=== PATIENT | male | born 1960 | race Caucasian/White ===

== ENCOUNTER 2019-04-11 07:01 | Emergency (ER) | payer BC ==
--- OUTSIDE RECORDS SUMMARY | 2019-04-11 07:08 | XMS REPORT | Summary of Care ---
:1960 Author Organization [facility] Address [address] [address] Care Team Providers Name Role Phone Alvin Herrera Primary Care Provider Reason for Visit Reason Comments Follow Up pt presents for follow up with medication Encounter Details Date Type Department Care Team Description 02/16/2019 Office Visit [facility] Alvin Herrera MD Gastroesophageal reflux disease with esophagitis (Primary Dx); Practice [address] [place] [address] Lipid screening; [address] [place] [address] Mild persistent asthma, unspecified [place] [address] [phone] Allergies Active Allergy Reactions Severity Noted Date Comments No Known Allergies Other 09/02/2007 documented as of this encounter (statuses as of 02/16/2019) Medications Medication Sig Dispensed Refills Start Date End Date Status albuterol HFA Take 2 Puffs by 1 Inhaler 5 03/27/2017 Active (VENTOLIN) 108 (90 inhalation FOUR Base) MCG/ACT TIMES DAILY Inhalation Aero NEEDED (cough). SolnIndications: Moderate persistent asthma, unspecified whether complicated montelukast TAKE ONE TABLET 30 Tab 5 09/09/2018 Active (SINGULAIR) 10 MG BY MOUTH ONCE Oral Tab DAILY DIRECTED SYMBICORT 160-4.5 INHALE TWO PUFFS 10.2 g 5 01/07/2019 Active MCG/ACT Inhalation BY MOUTH TWICE A Aerosol DAY pantoprazole TAKE ONE TABLET 180 Tab 0 02/05/2019 Active (PROTONIX) 40 MG BY MOUTH TWICE A Oral Tab EC DAY DIRECTED pantoprazole TAKE ONE TABLET 180 Tab 3 02/26/2017 Discontinued (PROTONIX) 40 MG BY MOUTH TWICE A 9 Oral Tab EC DAY documented as of this encounter (statuses as of 02/16/2019) Active Problems Problem Noted Date Left shoulder pain 03/12/2018 Family history of anticardiolipin syndrome 01/07/2014 GERD (gastroesophageal reflux disease) 10/16/2009 Overview: For chronic cough PULMONARY NODULES 09/10/2009 FAMILY HISTORY OF CAD 09/02/2007 Overview: DAD KIDNEY STONES 09/02/2007 Sleep Apnea 09/02/2007 Hemorrhagic disorder due to intrinsic circulating anticoagulants 09/02/2007 Overview: MOM FAMILY HISTORY OF ESOPHAGEAL CANCER 09/02/2007 Overview: PATERNAL GRANDFATHER documented as of this encounter (statuses as of 02/16/2019) Resolved Problems Problem Noted Date Resolved Date Unspecified asthma(493.90) 07/13/2009 10/16/2009 documented as of this encounter (statuses as of 02/16/2019) Immunizations Name Administration Dates Next Due Influenza (IM) Preservative Free 12/12/2015 documented as of this encounter Social History Tobacco Use Types Packs/Day Years Used Date Never Smoker Smokeless Tobacco: Never Used Alcohol Use Drinks/Week oz/Week Comments No Sex Assigned at Date Recorded Not on file Job Start Date Occupation Industry Not on file Not on file Not on file Travel History Travel Start Travel End No recent travel history available. documented as of this encounter Last Filed Vital Signs Vital Sign Reading Time Taken Comments Blood Pressure 134/80 02/16/2019 10:04 AM EST Pulse 75 02/16/2019 10:04 AM EST Temperature - - Respiratory Rate - - Oxygen Saturation 98% 02/16/2019 10:04 AM EST Inhaled Oxygen Concentration - - Weight 93.4 kg (205 lb 12.8 oz) 02/16/2019 10:04 AM EST Height 180.3 cm (5' 11") 02/16/2019 10:04 AM EST Body Mass Index 28.7 02/16/2019 10:04 AM EST documented in this encounter Progress Notes Alvin Herrera MD - 02/16/2019 10:20 AM EST PATIENT: Francisco Fowler : 1960 DATE OF SERVICE: 02/16/2019 CHIEF COMPLAINT: Chief Complaint Patient presents with Follow Up pt presents for follow up with medication Subjective HISTORY OF PRESENT ILLNESS: Francisco Fowler is a 58-y.o. male. He has asthma and GERD triggers it. He had been stable but had a flare recently and used his rescueinhaler. 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 He is tired . Bed at 9 and up at 4 Past Medical History: Diagnosis Date Asthma Diverticulosis Esophagitis 2012 despite protonix daily FAMILY HISTORY OF ANTICARDIOLIPIN SYNDROME 09/02/2007 MOM FAMILY HISTORY OF CAD 09/02/2007 DAD 60 FAMILY HISTORY OF ESOPHAGEAL CANCER 09/02/2007 PATERNAL GRANDFATHER GERD (gastroesophageal reflux disease) 10/16/2009 for chronic cough Hyperlipidemia Sleep Apnea 09/02/2007 not on machine Family History Problem Relation Age of Onset High Cholesterol Father Arthritis Father Heart Paternal Grandfather Cancer Paternal Grandfather ESOPHAGEAL Diabetes Paternal Grandfather Stroke Mother Seizures Mother Diabetes Paternal Grandmother Cancer Maternal Grandmother Current Outpatient Medications Medication Sig albuterol HFA (VENTOLIN) 108 (90 Base) MCG/ACT Inhalation Aero Soln Take 2 Puffs by inhalation FOUR TIMES DAILY NEEDED (cough). montelukast (SINGULAIR) 10 MG Oral Tab TAKE ONE TABLET BY MOUTH ONCE DAILY DIRECTED pantoprazole (PROTONIX) 40 MG Oral Tab EC TAKE ONE TABLET BY MOUTH TWICE A DAY DIRECTED SYMBICORT 160-4.5 MCG/ACT Inhalation Aerosol INHALE TWO PUFFS BY MOUTH TWICE A DAY No current facility-administered medications for this visit. Allergies Allergen Reactions No Known Allergies Other Social History Socioeconomic History Marital status: Spouse name: Not on file Number of children: Not on file Years of education: Not on file Highest education level: Not on file Occupational History Not on file Social Needs Financial resource strain: Not on file Food insecurity Worry: Not on file Inability: Not on file Transportation needs Medical: Not on file Non-medical: Not on file Tobacco Use Smoking status: Never Smoker Smokeless tobacco: Never Used Substance and Sexual Activity Alcohol use: No Drug use: Yes Types: Prescription Sexual activity: Not on file Lifestyle Physical activity Days per week: Not on file Minutes per session: Not on file Stress: Not on file Relationships Social connections Talks on phone: Not on file Gets together: Not on file Attends congregation service: Not on file Active member of club or organization: Not on file Attends meetings of clubs or organizations: Not on file Relationship status: Not on file Intimate partner violence Fear of current or ex partner: Not on file Emotionally abused: Not on file Physically abused: Not on file Forced sexual activity: Not on file Other Topics Concern Not on file Social History Narrative Lives on 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 No tobacco use. Over the last 2 weeks, have you been feeling down, depressed, anxious, or hopeless?: 0 Over the past 2 weeks, have you felt little interest or pleasure in doing things ?: 0 REVIEW OF SYSTEMS: Review of Systems Cardiovascular: Negative for chest pain. Objective PHYSICAL EXAM: VITALS: BP 134/80 (BP Location: Left arm, Patient Position: Sitting) | Pulse 75 | Ht 5' 11" (1.803 m) | Wt 205 lb 12.8 oz (93.4 kg) | SpO2 98% | BMI 28.70 kg/m Body mass index is 28.7 kg/m. Physical Exam Vitals signs reviewed. Constitutional: Appearance: He is not ill-appearing. HENT: Mouth/Throat: Pharynx: Oropharynx is clear. Cardiovascular: Rate and Rhythm: Normal rate and regular rhythm. Heart sounds: Normal heart sounds. Pulmonary: Effort: Pulmonary effort is normal. No respiratory distress. Breath sounds: Normal breath sounds. Musculoskeletal: Right lower leg: No edema. Left lower leg: No edema. Psychiatric: Mood and Affect: Mood normal. ASSESSMENT / IMPRESSION: ICD-9-CM ICD-10-CM 1. Gastroesophageal reflux disease with esophagitis that is a major trigger to his asthma . I would recommend another egd when in for colonoscopy in a couple years 530.11 K21.0 2. Lipid screening Fasting today V77.91 Z13.220 LIPID PROFILE BASIC METABOLIC PANEL 3. Mild persistent asthma, unspecified whether complicated 493.90 J45.30 We are out of flu shots Will have to go elsewhere Plan Author: Alvin Herrera MD 02/16/2019 10:14 documented in this encounter Plan of Treatment Name Type Priority Associated Diagnoses Date/Time LIPID PROFILE Lab Routine Lipid screening 02/16/2019 10:40 AM EST BASIC METABOLIC PANEL Lab Routine Lipid screening 02/16/2019 10:40 AM EST Health Maintenance Due Date Last Done Comments PNEUMOCOCCAL 0-64 YRS (1 of 07/18/1965 1 - PPSV23) DTaP/Tdap/Td Vaccines (1 - 07/18/1970 Tdap) ZOSTER IMMUNIZATION SERIES 07/18/2009 (1 of 2) INFLUENZA VACCINE (#1) 2018 12/12/2015 DIABETES SCREENING 01/03/2019 01/03/2018, 07/29/2015 LIPID DISORDER SCREENING 01/03/2019 01/03/2018, 07/29/2015, 05/06/2013, Additional history exists DEPRESSION SCREENING 02/17/2020 02/16/2019 Colonoscopy 10/22/2021 10/23/2011, 10/22/2011 HEPATITIS A IMMUNIZATION Aged Out No longer eligible SERIES based on patient's age to complete this topic HPV IMMUNIZATION SERIES Aged Out No longer eligible based on patient's age to complete this topic MENINGOCOCCAL VACCINE IMM Aged Out No longer eligible based on patient's age to complete this topic documented as of this encounter Results Not on filedocumented in this encounter Visit Diagnoses Diagnosis Lipid screening Screening for lipoid disorders Gastroesophageal reflux disease with esophagitis Mild persistent asthma, unspecified whether complicated documented in this encounter Insurance Payer Benefit Plan / Subscriber ID Effective Dates Phone Address Type Group [employer] xxxxxxxxxxxx 2016-Present [employer] (Home) [phone] [place], [place] (Work) [id number] documented as of this encounter
[2019-04-11 07:16] VITALS: BP 176/98
[2019-04-11 07:30] LABS: Influenza B Molecular POSITIVE (Negative)
--- NOTE | 2019-04-11 07:47 | UC ---
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 Many exposures to flu B and strep. Hx of asthma, has not used albuterol, remains on maintenance sympbicort without increase in wheeze or shortness of breath. - History of Current Complaint Chief Complaint: UCRespiratory Stated Complaint: BODYACHES SORE THROAT HEADACHE Time Seen by Provider: 04/11/19 07:38 Hx Obtained From: Patient Onset/Duration: Gradual Onset, Lasting Days Severity Currently: Moderate Severity Initially: Mild Pain Intensity: 5 Associated Signs & Symptoms: Positive: Fever, Myalgia, Cough, Sore Throat, Nasal Congestion, Headache. Negative: Vomiting, Diarrhea - Risk Factors Influenza Risk Factors: Chronic Medical or Immunosuppresive Condition - Allergy/Home Medications Allergies/Adverse Reactions: Allergies Allergy/AdvReac Type Severity Reaction Status Date / Time No Known Allergies Allergy Verified 04/11/19 07:16 PMH/Surg Hx/FS Hx/Imm Hx Previously Healthy: Yes Respiratory History: Asthma - Surgical History Surgical History: Yes Surgery Procedure, Year, and Place: &A-1980 - Family History Known Family History: Positive: Non-Contributory - Social History Occupation: Employed Full-time Lives: With Family Alcohol Use: None Substance Use Type: None Smoking Status (MU): Never Smoked Tobacco - Immunization History Most Recent Influenza Vaccination: 10/2013 Most Recent Tetanus Shot: <10 years Most Recent Pneumonia Vaccination: never Review of Systems All Other Systems Reviewed And Are Negative: Yes Constitutional: Positive: Fever, Fatigue Skin: Positive: Negative Eyes: Positive: Negative ENT: Positive: Sore Throat, Nasal Discharge Respiratory: Positive: Cough. Negative: Shortness Of Breath Cardiovascular: Negative: Palpitations, Chest Pain Gastrointestinal: Positive: Negative Genitourinary: Positive: Negative Motor: Positive: Negative Neurovascular: Positive: Negative Musculoskeletal: Positive: Myalgia Neurological/Mental Status: Positive: Headache Psychological: Positive: Negative Is Patient Immunocompromised?: No Physical Exam Triage Information Reviewed: Yes Appearance: No Pain Distress, Ill-Appearing Vital Signs: Initial Vital Signs Temp 99.2 F 04/11/19 07:12 Pulse 89 04/11/19 07:12 Resp 16 04/11/19 07:12 BP 176/98 04/11/19 07:12 Pulse Ox 98 04/11/19 07:12 Eyes: Positive: Conjunctiva Clear ENT: Positive: Pharyngeal erythema. Negative: Tonsillar swelling, Tonsillar exudate Neck: Positive: Supple, Nontender, No Lymphadenopathy Respiratory: Positive: Lungs clear, Normal breath sounds Cardiovascular: Positive: RRR, No Murmur Musculoskeletal Exam: Normal Neurological Exam: Normal Psychological Exam: Normal Skin Exam: Normal Diagnostics - Laboratory Lab Results: influenza B positive Flu Course/Dx - Course Course Of Treatment: Symptoomatic treatment of flu B. Given duration of symptoms, unlikely to benefit from Tamiflu and he is managing his asthma well. - Differential Dx/Diagnosis Differential Diagnosis/HQI/PQRI: Influenza, Upper Respiratory Infection, Other - strep Provider Diagnosis: Influenza B Discharge ED - Sign-Out/Discharge Documenting (check all that apply): Patient Departure All imaging exams completed and their final reports reviewed: No Studies - Discharge Plan Condition: Stable Disposition: HOME Patient Education Materials: Influenza (ED) Referrals: Alvin Herrera MD [Primary Care Provider] - Additional Instructions: Your initial blood pressure is elevated to 176/98--as reviewed, this is not typical for you. Continue symptomatic treatment, with a focus on staying hydrated. - Billing Disposition and Condition Condition: STABLE Disposition: Home
== END 2019-04-11 07:57 | disposition home or self-care (01) ==
LOC: UCEAST 07:01
DX: J10.1 Influenza due to other identified influenza virus with other respiratory manifestations (principal); J45.909 Unspecified asthma, uncomplicated; Z79.899 Other long term (current) drug therapy
CPT/HCPCS: 87651; 99201; G0463

== ENCOUNTER 2020-06-26 12:26 | Observation (INO) ==
[2020-06-26 13:56] LABS: ABS Basophils 0.1 10^3/ul (0-0.2); ABS Eosinophils 0.2 10^3/ul (0-0.6); ABS Lymphocytes 2.2 10^3/ul (1.0-4.8); ABS Monocytes 0.8 10^3/ul (0-0.8); ABS Neutrophils 6.3 10^3/ul (1.5-7.7); Eosinophil % 1.9 %; Hematocrit 42 % (42-52); Hemoglobin 14.6 g/dL (14.0-18.0); Lymphocyte % 23.4 %; Mean Corpuscular HGB Conc 35 g/dL (31-36); Mean Corpuscular Hemoglobin 31 pg (27-31); Mean Corpuscular Volume 90 fL (80-94); Mean Platelet Volume 7.5 fL (7.4-10.4); Platelet Count 270 10^3/uL (150-450); Red Blood Count 4.69 10^6 /uL (4.18-5.48); Red Cell Distribution Width 13 % (10-15); White Blood Count 9.6 10^3/uL (3.5-10.8)
[2020-06-26 14:09] LABS: INR 1.13 (0.82-1.09)
[2020-06-26 14:18] LABS: Albumin 4.1 g/dL (3.2-5.2); Albumin/Globulin Ratio 1.6 (1-3); Calcium 9.1 mg/dL (8.6-10.3); EGFR African American 76.2 (>60); Globulin 2.6 g/dL (2-4); Magnesium 2.3 mg/dL (1.9-2.7); Total Bilirubin 0.4 mg/dL (0.2-1.0); Total Protein 6.7 g/dL (6.4-8.9)
[2020-06-26] MEDS ORDERED: Albuterol HFA INHALER 8 gm MDI INH PRN (15:54)
[2020-06-26 16:00] LABS: TSH Ultra Thyroid Stim Horm 0.68 mcIU/mL (0.34-5.60)
[2020-06-26] MEDS: Mometasone/Formoter 200/5 MDI INH SCH (19:41)
[2020-06-27 05:23] LABS: ABS Basophils 0.1 10^3/ul (0-0.2); ABS Eosinophils 0.4 10^3/ul (0-0.6); ABS Lymphocytes 2.3 10^3/ul (1.0-4.8); ABS Monocytes 0.6 10^3/ul (0-0.8); ABS Neutrophils 4.4 10^3/ul (1.5-7.7); Eosinophil % 4.6 %; Hematocrit 42 % (42-52); Hemoglobin 14.7 g/dL (14.0-18.0); Mean Corpuscular HGB Conc 35 g/dL (31-36); Mean Corpuscular Hemoglobin 31 pg (27-31); Mean Corpuscular Volume 88 fL (80-94); Mean Platelet Volume 7.7 fL (7.4-10.4); Platelet Count 256 10^3/uL (150-450); Red Blood Count 4.73 10^6 /uL (4.18-5.48); Red Cell Distribution Width 13 % (10-15); White Blood Count 7.7 10^3/uL (3.5-10.8)
[2020-06-27 05:52] LABS: Calcium 9.1 mg/dL (8.6-10.3); EGFR African American 82.6 (>60); EGFR Non-African American 68.3 (>60); HDL Cholesterol 43.9 mg/dL; Potassium 3.9 mmol/L (3.5-5.0)
[2020-06-27] MEDS: Mometasone/Formoter 200/5 MDI INH SCH ×2 (08:46→23:53)
[2020-06-27 16:46] VITALS: BP 130/63
== END 2020-06-27 17:40 | disposition home or self-care (01) ==
LOC: MEDTELE 12:26 → ED 12:26 → MEDTELE 16:19
PROVIDERS: ADMIT Hospitalist; ATTEND Hospitalist